=== PATIENT | male | born 1990 | race American Indian/Alaskan Native ===

== ENCOUNTER 2022-03-12 00:48 | Emergency (ER) | payer SELFPAY ==
--- NOTE | 2022-03-12 02:30 | Emergency Department Report ---
<CK GARRIDO - Last Filed: 03/12/22 06:26> ED Altered Mental Status HPI - General Stated Complaint: POSS OVERDOSE Time Seen by Provider: 03/12/22 02:15 - History of Present Illness Initial Comments: 31-year-old brought in by EMS with altered mental status with the possibility of overdose on unknown illicit drug substance. Patient was given Narcan with some improvement in mental alertness. Patient denies using any illicit drug use at this point. Pt also denies any suicide or homicidal ideation. No other luz fying or positive factors reported. - Related Data Previous Rx's Medication Instructions Recorded Last Taken Type Naloxone HCl [Narcan Nasal [place]] 4 mg NS PRN PRN #1 spray 03/12/22 Unknown Rx Nitrofurantoin Cotton/M-Cryst 100 mg PO Q12HR #10 capsule 03/12/22 Unknown Rx [Macrobid CAP] Allergies Allergy/AdvReac Type Severity Reaction Status Date / Time No Known Allergies Allergy Verified 03/12/22 05:00 ED Review of Systems Comment: All other systems reviewed and negative Constitutional: other (Altered mental status) Neurological: other (Altered mental status) ED Past Medical Hx - Medications Home Medications: Home Medications Medication Instructions Recorded Confirmed Last Taken Type Naloxone HCl [Narcan Nasal [place]] 4 mg NS PRN PRN #1 spray 03/12/22 Unknown Rx Nitrofurantoin Cotton/M-Cryst 100 mg PO Q12HR #10 capsule 03/12/22 Unknown Rx [Macrobid CAP] ED Physical Exam - General Limitations: Altered Mental Status General appearance: alert, in no apparent distress - Head Head exam: Present: atraumatic, normal inspection - Eye Eye exam: Present: normal appearance Pupils: Present: normal accommodation - ENT ENT exam: Present: normal exam, normal orophraynx, mucous membranes dry - Neck Neck exam: Present: normal inspection, full ROM. Absent: tenderness - Respiratory Respiratory exam: Present: normal lung sounds bilaterally. Absent: respiratory distress, accessory muscle use - Cardiovascular Cardiovascular Exam: Present: regular rate, normal rhythm, normal heart sounds - GI/Abdominal GI/Abdominal exam: Present: soft, normal bowel sounds. Absent: distended, tenderness - Extremities Exam Extremities exam: Present: normal inspection, full ROM, normal capillary refill. Absent: tenderness - Back Exam Back exam: Present: normal inspection. Absent: tenderness - Neurological Exam Neurological exam: Present: alert, oriented X3 - Psychiatric Psychiatric exam: Present: normal affect, depressed - Skin Skin exam: Present: warm, normal color - Assessment Assessment Interval: Baseline - Level of Consciousness 1a. Level of Consciousness: alert/keenly responsive - LOC Questions 1b. LOC Questions: answers both correctly - LOC Command 1c. LOC Commands: performs tasks correctly - Best Gaze 2. Best Gaze: normal - Visual 3. Visual: no visual loss - Facial Palsy 4. Facial Palsy: normal symmetrical movement - Motor Arm 5a. Motor Arm Left: no drift 5b. Motor Arm Right: no drift - Motor Leg 6a. Motor Leg Left: no drift 6b. Motor Leg Right: no drift - Limb Ataxia 7. Limb Ataxia: absent - Sensory 8. Sensory: normal - Best Language 9. Best Language: no aphasia - Dysarthria 10. Dysarthria: normal - Extinction and Inattention 11. Extinction/Inattention: no abnormality - Scoring Total Score: 0 Stroke Severity: No Stroke Symptoms ED Course - Reevaluation(s) Reevaluation #1: 03/12/22 02:29 here with AMS with possible overdose on illicit drug unknown but respond to narcan so likely opoiod -- will start ivf ns 1L bolus and order routine labs for any correctable cause-- Reevaluation #2: 03/12/22 05:53 Noted with unremarkable labs including TSH-- pt hydrated and d/c home with warning to return to ED if symptoms worsen. - Lab Data Result diagrams: 03/12/22 03:04 03/12/22 03:04 - Medical Decision Making Here with likely overdose on illicit drug use and respond well to narcan by EMS-- Denies any suicidal or homicidal ideation and --noted with hypoxia and hypotension and responding to ox supplement and ivf ns -- pt prep ready for discharge as soon as able to urinated for Urinalysis and completed ivf normal saline. ED Disposition Clinical Impression: Drug abuse, Urethritis, Amphetamine abuse Overdose Qualifiers: Encounter type: initial encounter Injury intent: undetermined intent Qualified Code(s): T50.904A - Poisoning by unspecified drugs, medicaments and biological substances, undetermined, initial encounter Disposition: HOME / SELF CARE / HOMELESS Is pt being admited?: No Does the pt Need Aspirin: No Condition: Stable Instructions: Substance Use Disorder, Urethritis, Adult Additional Instructions: Increase your daily fluid to help your hydration Quit illicit drug use to help your general health Call and schedule follow-up with your primary doctor in the next 3 to 5 days for progress Please do not hesitate to call or return to emergency room if your symptoms worsen Prescriptions: Nitrofurantoin Cotton/M-Cryst [Macrobid CAP] 100 mg PO Q12HR #10 capsule Naloxone HCl [Narcan Nasal [place]] 4 mg NS PRN PRN #1 spray PRN Reason: Opioid Reversal Referrals: JULIA BELL MD [Referring] - 3-5 Days Forms: STI Treatment and Prevention Time of Disposition: 05:55 <MISSY WILLINGHAM - Last Filed: 03/12/22 11:44> ED Review of Systems ROS: Stated complaint: POSS OVERDOSE Other details as noted in HPI ED Course Vital Signs 03/12/22 03/12/22 03/12/22 00:49 01:21 01:30 Temperature 98 F Pulse Rate 60 51 L 50 L Respiratory 18 9 L 10 L Rate Blood Pressure 153/96 157/96 157/96 Blood Pressure [Left] O2 Sat by Pulse 100 100 100 Oximetry 03/12/22 03/12/22 03/12/22 01:46 02:00 02:16 Temperature Pulse Rate 52 L 50 L 70 Respiratory 10 L 8 L 11 L Rate Blood Pressure 157/96 157/96 149/97 Blood Pressure [Left] O2 Sat by Pulse 100 99 Oximetry 03/12/22 03/12/22 03/12/22 02:30 02:46 03:00 Temperature Pulse Rate 56 L 53 L 68 Respiratory 10 L 10 L 9 L Rate Blood Pressure 149/97 149/97 149/97 Blood Pressure [Left] O2 Sat by Pulse 100 100 100 Oximetry 03/12/22 03/12/22 03/12/22 03:16 03:30 03:38 Temperature Pulse Rate 59 L 53 L Respiratory 11 L 9 L Rate Blood Pressure 146/106 146/106 Blood Pressure [Left] O2 Sat by Pulse 100 100 100 Oximetry 03/12/22 03/12/22 03/12/22 03:46 04:00 04:09 Temperature Pulse Rate 83 68 60 Respiratory 13 7 L 18 Rate Blood Pressure 146/106 146/106 Blood Pressure 139/96 [Left] O2 Sat by Pulse 100 100 100 Oximetry 03/12/22 03/12/22 03/12/22 04:16 04:30 04:46 Temperature Pulse Rate 57 L 63 64 Respiratory 9 L 11 L 8 L Rate Blood Pressure 139/96 139/96 139/96 Blood Pressure [Left] O2 Sat by Pulse 100 100 100 Oximetry 03/12/22 03/12/22 03/12/22 05:00 05:16 05:30 Temperature Pulse Rate 59 L 60 58 L Respiratory 16 9 L 13 Rate Blood Pressure 139/96 142/88 142/88 Blood Pressure [Left] O2 Sat by Pulse 100 100 100 Oximetry 03/12/22 03/12/22 03/12/22 05:46 06:00 07:53 Temperature Pulse Rate 80 99 H 85 Respiratory 12 18 Rate Blood Pressure 142/88 142/88 Blood Pressure 138/78 118/60 [Left] O2 Sat by Pulse 99 Oximetry 03/12/22 08:38 Temperature Pulse Rate 85 Respiratory 17 Rate Blood Pressure Blood Pressure 156/90 [Left] O2 Sat by Pulse 100 Oximetry - Reevaluation(s) Reevaluation #3: 03/12/22 07:53 Patient reassessed. He does not recall what happened or how he got to the hospital. He last remembers going to a hotel. He denies knowingly abusing dr bertrand and does not recall taking any substances. States he currently feels dizzy with standing. Patient has not received any IV fluids during ED stay apparently he is a difficult stick. New nurse instructed to attempt to obtain IV access for IV fluid administration. - Lab Data Result diagrams: 03/12/22 03:04 03/12/22 03:04 Lab Results 03/12/22 03/12/22 03/12/22 Range/Units 03:04 03:04 03:04 WBC 5.1 (4.5-11.0) K/mm3 RBC 4.93 (3.65-5.03) M/mm3 Hgb 13.4 (11.8-15.2) gm/dl Hct 41.2 (35.5-45.6) % MCV 84 (84-94) fl MCH 27 L (28-32) pg MCHC 33 (32-34) % RDW 13.9 (13.2-15.2) % Plt Count 349 (140-440) K/mm3 Lymph % (Auto) 16.9 (13.4-35.0) % Cotton % (Auto) 6.9 (0.0-7.3) % Eos % (Auto) 0.4 (0.0-4.3) % Baso % (Auto) 0.3 (0.0-1.8) % Lymph # (Auto) 0.9 L (1.2-5.4) K/mm3 Cotton # (Auto) 0.4 (0.0-0.8) K/mm3 Eos # (Auto) 0.0 (0.0-0.4) K/mm3 Baso # (Auto) 0.0 (0.0-0.1) K/mm3 Seg Neutrophils % 75.5 H (40.0-70.0) % Seg Neutrophils # 3.9 (1.8-7.7) K/mm3 PT 13.4 (12.2-14.9) Sec. INR 0.92 (0.87-1.13) APTT 27.3 (24.2-36.6) Sec. Sodium 134 L (137-145) mmol/L Potassium 4.3 (3.6-5.0) mmol/L Chloride 99.4 (98-107) mmol/L Carbon Dioxide 26 (22-30) mmol/L Anion Gap 13 mmol/L BUN 10 (9-20) mg/dL Creatinine 0.6 L (0.8-1.3) mg/dL Estimated GFR > 60 ml/min BUN/Creatinine Ratio 17 % Glucose 120 H (75-100) mg/dL Calcium 9.3 (8.4-10.2) mg/dL Total Bilirubin 0.50 (0.1-1.2) mg/dL AST 26 (5-40) units/L ALT 26 (7-56) units/L Alkaline Phosphatase 63 (35-129) units/L Troponin T < 0.010 (0.00-0.029) ng/mL NT-Pro-B Natriuret Pep 28.51 (0-450) pg/mL Total Protein 9.7 H (6.3-8.2) g/dL Albumin 4.1 (3.9-5) g/dL Albumin/Globulin Ratio 0.7 % TSH (0.270-4.200) mlU/mL Urine Color (Yellow) Urine Turbidity (Clear) Urine pH (5.0-7.0) Ur Specific [place] (1.003-1.030) Urine Protein (Negative) mg/dL Urine Glucose (UA) (Negative) mg/dL Urine Ketones (Negative) mg/dL Urine Blood (Negative) Urine Nitrite (Negative) Urine Bilirubin (Negative) Urine Urobilinogen (<2.0) mg/dL Ur Leukocyte Esterase (Negative) Urine WBC (Auto) (0.0-6.0) /HPF Urine RBC (Auto) (0.0-6.0) /HPF U Epithel Cells (Auto) (0-13.0) /HPF Urine Bacteria (Auto) (Negative) /HPF Urine Mucus /HPF Salicylates (2.8-20.0) mg/dL Urine Opiates Screen Urine Methadone Screen Acetaminophen (10.0-30.0) ug/mL Ur Barbiturates Screen Ur Phencyclidine Scrn Ur Amphetamines Screen U Benzodiazepines Scrn Urine Cocaine Screen U Marijuana (THC) Screen Drugs of Abuse Note Plasma/Serum Alcohol (0-0.07) % 03/12/22 03/12/22 03/12/22 Range/Units 03:04 03:04 03:04 WBC (4.5-11.0) K/mm3 RBC (3.65-5.03) M/mm3 Hgb (11.8-15.2) gm/dl Hct (35.5-45.6) % MCV (84-94) fl MCH (28-32) pg MCHC (32-34) % RDW (13.2-15.2) % Plt Count (140-440) K/mm3 Lymph % (Auto) (13.4-35.0) % Cotton % (Auto) (0.0-7.3) % Eos % (Auto) (0.0-4.3) % Baso % (Auto) (0.0-1.8) % Lymph # (Auto) (1.2-5.4) K/mm3 Cotton # (Auto) (0.0-0.8) K/mm3 Eos # (Auto) (0.0-0.4) K/mm3 Baso # (Auto) (0.0-0.1) K/mm3 Seg Neutrophils % (40.0-70.0) % Seg Neutrophils # (1.8-7.7) K/mm3 PT (12.2-14.9) Sec. INR (0.87-1.13) APTT (24.2-36.6) Sec. Sodium (137-145) mmol/L Potassium (3.6-5.0) mmol/L Chloride (98-107) mmol/L Carbon Dioxide (22-30) mmol/L Anion Gap mmol/L BUN (9-20) mg/dL Creatinine (0.8-1.3) mg/dL Estimated GFR ml/min BUN/Creatinine Ratio % Glucose (75-100) mg/dL Calcium (8.4-10.2) mg/dL Total Bilirubin (0.1-1.2) mg/dL AST (5-40) units/L ALT (7-56) units/L Alkaline Phosphatase (35-129) units/L Troponin T (0.00-0.029) ng/mL NT-Pro-B Natriuret Pep (0-450) pg/mL Total Protein (6.3-8.2) g/dL Albumin (3.9-5) g/dL Albumin/Globulin Ratio % TSH 0.419 (0.270-4.200) mlU/mL Urine Color (Yellow) Urine Turbidity (Clear) Urine pH (5.0-7.0) Ur Specific [place] (1.003-1.030) Urine Protein (Negative) mg/dL Urine Glucose (UA) (Negative) mg/dL Urine Ketones (Negative) mg/dL Urine Blood (Negative) Urine Nitrite (Negative) Urine Bilirubin (Negative) Urine Urobilinogen (<2.0) mg/dL Ur Leukocyte Esterase (Negative) Urine WBC (Auto) (0.0-6.0) /HPF Urine RBC (Auto) (0.0-6.0) /HPF U Epithel Cells (Auto) (0-13.0) /HPF Urine Bacteria (Auto) (Negative) /HPF Urine Mucus /HPF Salicylates < 0.3 L (2.8-20.0) mg/dL Urine Opiates Screen Urine Methadone Screen Acetaminophen (10.0-30.0) ug/mL Ur Barbiturates Screen Ur Phencyclidine Scrn Ur Amphetamines Screen U Benzodiazepines Scrn Urine Cocaine Screen U Marijuana (THC) Screen Drugs of Abuse Note Plasma/Serum Alcohol < 0.01 (0-0.07) % 03/12/22 03/12/22 03/12/22 Range/Units 03:04 Unknown Unknown WBC (4.5-11.0) K/mm3 RBC (3.65-5.03) M/mm3 Hgb (11.8-15.2) gm/dl Hct (35.5-45.6) % MCV (84-94) fl MCH (28-32) pg MCHC (32-34) % RDW (13.2-15.2) % Plt Count (140-440) K/mm3 Lymph % (Auto) (13.4-35.0) % Cotton % (Auto) (0.0-7.3) % Eos % (Auto) (0.0-4.3) % Baso % (Auto) (0.0-1.8) % Lymph # (Auto) (1.2-5.4) K/mm3 Cotton # (Auto) (0.0-0.8) K/mm3 Eos # (Auto) (0.0-0.4) K/mm3 Baso # (Auto) (0.0-0.1) K/mm3 Seg Neutrophils % (40.0-70.0) % Seg Neutrophils # (1.8-7.7) K/mm3 PT (12.2-14.9) Sec. INR (0.87-1.13) APTT (24.2-36.6) Sec. Sodium (137-145) mmol/L Potassium (3.6-5.0) mmol/L Chloride (98-107) mmol/L Carbon Dioxide (22-30) mmol/L Anion Gap mmol/L BUN (9-20) mg/dL Creatinine (0.8-1.3) mg/dL Estimated GFR ml/min BUN/Creatinine Ratio % Glucose (75-100) mg/dL Calcium (8.4-10.2) mg/dL Total Bilirubin (0.1-1.2) mg/dL AST (5-40) units/L ALT (7-56) units/L Alkaline Phosphatase (35-129) units/L Troponin T (0.00-0.029) ng/mL NT-Pro-B Natriuret Pep (0-450) pg/mL Total Protein (6.3-8.2) g/dL Albumin (3.9-5) g/dL Albumin/Globulin Ratio % TSH (0.270-4.200) mlU/mL Urine Color Yellow (Yellow) Urine Turbidity Clear (Clear) Urine pH 6.0 (5.0-7.0) Ur Specific [place] 1.014 (1.003-1.030) Urine Protein <15 mg/dl (Negative) mg/dL Urine Glucose (UA) Neg (Negative) mg/dL Urine Ketones 20 (Negative) mg/dL Urine Blood Neg (Negative) Urine Nitrite Neg (Negative) Urine Bilirubin Neg (Negative) Urine Urobilinogen 2.0 (<2.0) mg/dL Ur Leukocyte Esterase Neg (Negative) Urine WBC (Auto) 7.0 H (0.0-6.0) /HPF Urine RBC (Auto) 1.0 (0.0-6.0) /HPF U Epithel Cells (Auto) < 1.0 (0-13.0) /HPF Urine Bacteria (Auto) 1+ (Negative) /HPF Urine Mucus 3+ /HPF Salicylates (2.8-20.0) mg/dL Urine Opiates Screen Presumptive negative Urine Methadone Screen Presumptive negative Acetaminophen 5.0 L (10.0-30.0) ug/mL Ur Barbiturates Screen Presumptive negative Ur Phencyclidine Scrn Presumptive negative Ur Amphetamines Screen Presumptive positive U Benzodiazepines Scrn Presumptive negative Urine Cocaine Screen Presumptive negative U Marijuana (THC) Screen Presumptive negative Drugs of Abuse Note Disclamer Plasma/Serum Alcohol (0-0.07) % - Medical Decision Making UDS positive for amphetamine Urine shows white cells and bacteria. Patient received Rocephin and azithrom ycin empiric for STD urethritis and will be discharged on antibiotics for UTI Patient feels better after IV fluids. Lightheadedness resolved. Delay in treatment because patient required ultrasound-guided IV access. Critical Care Time: No Critical care attestation.: If time is entered above; I have spent that time in minutes in the direct care o f this critically ill patient, excluding procedure time. ED Disposition Time of Disposition: 11:39
[2022-03-12] MEDS ORDERED: SODIUM CHLORIDE 0.9% 1000 ML 1,000 ML IV ONE (02:32)
[2022-03-12 03:28] LABS: Basophils % (Auto) 0.3 % (0.0-1.8); Eosinophils % (Auto) 0.4 % (0.0-4.3); Hematocrit 41.2 % (35.5-45.6); Hemoglobin 13.4 gm/dl (11.8-15.2); Lymphocytes # (Auto) 0.9 K/mm3 (1.2-5.4); Lymphocytes % (Auto) 16.9 % (13.4-35.0); Mean Corpuscular HGB Conc 33 % (32-34); Mean Corpuscular Volume 84 fl (84-94); Monocytes # (Auto) 0.4 K/mm3 (0.0-0.8); Monocytes % (Auto) 6.9 % (0.0-7.3); Platelet Count 349 K/mm3 (140-440); Red Blood Count 4.93 M/mm3 (3.65-5.03); Red Cell Distribution Width 13.9 % (13.2-15.2)
[2022-03-12 03:39] LABS: INR 0.92 (0.87-1.13)
[2022-03-12 03:40] LABS: Partial Thromboplastin Time 27.3 Sec. (24.2-36.6)
[2022-03-12 03:57] LABS: Alanine Aminotransferase 26 units/L (7-56); Albumin 4.1 g/dL (3.9-5); Blood Urea Nitrogen 10 mg/dL (9-20); Calcium 9.3 mg/dL (8.4-10.2); Hemolysis Index 52
[2022-03-12 04:06] LABS: BUN/Creatinine Ratio 17
[2022-03-12 06:46] LABS: Bacteria,Urine 1+ /HPF (Negative); Bilirubin,Urine NEG (Negative); Blood,Urine NEG (Negative); Color,Urine Yellow (Yellow); Mucus,Urine 3+ /HPF; Protein,Urine <15 mg/dL mg/dL (Negative)
[2022-03-12 06:52] LABS: Amphetamine Screen,Urine PRESUMPTIVE POSITIVE; Benzodiazepines Screen,Urine PRESUMPTIVE NEGATIVE; Cannabinoid Screen,Urine PRESUMPTIVE NEGATIVE; Cocaine Screen,Urine PRESUMPTIVE NEGATIVE; Methadone Screen,Urine PRESUMPTIVE NEGATIVE; Opiate Screen,Urine PRESUMPTIVE NEGATIVE
[2022-03-12] MEDS ORDERED: AZITHROMYCIN 250 MG TAB PO ONE (07:38)
[2022-03-12] MEDS ORDERED: LIDOCAINE-MPF (1%) 10 MG/1 ML VIAL 5 ML INFILTRATI ONE (07:38)
[2022-03-12] MEDS ORDERED: SODIUM CHLORIDE 0.9% 1000 ML 1,000 ML ONE (08:18)
--- NOTE | 2022-03-12 12:16 | Electrocardiograph Report ---
[facility] Test Date: 2022-03-12 Test Time: 03:58:16 Pat Name: MARQUIS NICHOLSON Department: Room: Gender: M Trestleman: [id number] : 1990 Requested By: CK GARRIDO Order Number: [id number] Reading MD: Angel Ratliff Measurements Intervals [place] Rate: 52 P: 51 LA: 132 QRS: 58 QRSD: 104 T: 45 QT: 461 QTc: 427 Interpretive Statements Sinus rhythm No previous ECG available for comparison Electronically Signed On 03-12-2022 12:15:27 EDT by Angel Ratliff
[2022-03-12 13:43] VITALS: BP 137/92
== END 2022-03-12 13:44 | disposition home or self-care (01) ==
LOC: ED 00:48
DX: F19.10 Other psychoactive substance abuse, uncomplicated (principal); N34.2 Other urethritis; F15.10 Other stimulant abuse, uncomplicated; T50.904A Poisoning by unspecified drugs, medicaments and biological substances, undetermined, initial encounter
CPT/HCPCS: 36415; 80053; 80307; 81001; 83880; 84443; 84484; 85025; 85610; 85730; 93005; 96361; 96365; 99285; J0696; J7030; 80320; 99284; G0480